=== PATIENT | male | born 1980 | race Caucasian/White ===

== ENCOUNTER 2018-11-03 13:22 | Emergency (ER) | payer OTHER ==
[~2018-11-03] VITALS: Ht 188 cm; Wt 90.7 kg
[2018-11-03] MEDS ORDERED: DOXYCYCLINE 10100 MG PO (13:44)
[2018-11-03 14:05] LABS: URINE BILIRUBIN NEGATIVE (Negative); URINE BLOOD TRACE (Negative); URINE CLARITY CLEAR; URINE COLOR YELLOW; URINE GLUCOSE-RANDOM NEGATIVE (Negative); URINE KETONES NEGATIVE (Negative); URINE LEUKOCYTES-REFLEX NEGATIVE (Negative); URINE NITRITE-REFLEX NEGATIVE (Negative); URINE PROTEIN NEGATIVE (Negative); URINE SPECIFIC GRAVITY <= 1.005 (1.005-1.030); URINE UROBILINOGEN 0.2 E.U./dl (0.2-1.0)
[2018-11-03 14:27] VITALS: BP 119/87
== END 2018-11-03 14:29 | disposition home or self-care (01) ==
LOC: M.ERS 13:22
PROVIDERS: Emergency Medicine Emergency Medical Services
DX: N34.2 Other urethritis (principal)